=== PATIENT | female | born 1955 | race Caucasian/White ===

== ENCOUNTER 2023-06-21 10:12 | Outpatient (REF) | payer MEDICARE, MEDICAID, SELFPAY ==
[2023-06-21 15:20] LABS: Alanine Aminotransferase 19 U/L (0-31); Albumin Level 3.9 g/dL (3.5-5.0); Alkaline Phosphatase 81 U/L (39-117); Anion Gap 10 (12-20); Aspartate Amino Transferase 24 U/L (5-31); Bilirubin Direct 0.2 mg/dL (0.0-0.5); Bilirubin Total 0.3 mg/dL (0.0-1.0); Blood Urea Nitrogen 7 mg/dL (9-16); Carbon Dioxide 25 mmol/L (22-29); Chloride 107 mmol/L (96-108); Cholesterol 136 mg/dL (<200); Estimated Glomerular Filt Rate > 60; Glucose Random 74 mg/dL (60-115); HDL Cholesterol 58 mg/dL (>40); LDL Cholesterol Calculated 52 mg/dL (<100); Sodium 138 mmol/L (135-145); Total Protein 7.8 g/dL (6.5-8.0); Triglycerides 130 mg/dL (<150)
== END 2023-06-21 10:13 | disposition home or self-care (01) ==
LOC: HO.CHCLDS 10:12
PROVIDERS: Visit Provider Student in an Organized Health Care Education/Training Program
DX: E78.00 Pure hypercholesterolemia, unspecified (principal)
CPT/HCPCS: 36415; 80048; 80061; 80076

== ENCOUNTER 2024-01-28 09:54 | Outpatient (REF) | payer MEDICARE, MEDICAID, SELFPAY ==
[2024-01-28 15:32] LABS: Alanine Aminotransferase 17 U/L (0-31); Albumin Level 3.4 g/dL (3.5-5.0); Alkaline Phosphatase 55 U/L (39-117); Anion Gap 12 (12-20); Aspartate Amino Transferase 24 U/L (5-31); Bilirubin Direct < 0.2 mg/dL (0.0-0.5); Bilirubin Total 0.2 mg/dL (0.0-1.0); Blood Urea Nitrogen 7 mg/dL (9-16); Calcium 8.5 mg/dL (8.4-10.2); Carbon Dioxide 25 mmol/L (22-29); Chloride 108 mmol/L (96-108); Cholesterol 130 mg/dL (<200); Estimated Glomerular Filt Rate > 60; Glucose Random 71 mg/dL (60-115); HDL Cholesterol 52 mg/dL (>40); LDL Cholesterol Calculated 60 mg/dL (<100); Potassium 3.9 mmol/L (3.3-5.1); Sodium 141 mmol/L (135-145); Total Protein 6.5 g/dL (6.5-8.0); Triglycerides 91 mg/dL (<150)
== END 2024-01-28 09:55 | disposition home or self-care (01) ==
LOC: HO.CHCLDS 09:54
PROVIDERS: Visit Provider Student in an Organized Health Care Education/Training Program
DX: E78.00 Pure hypercholesterolemia, unspecified (principal)
CPT/HCPCS: 36415; 80048; 80061; 80076

== ENCOUNTER 2024-07-19 09:40 | Outpatient (REF) | payer MEDICARE, MEDICAID, SELFPAY ==
--- OUTSIDE RECORDS SUMMARY | 2024-07-19 11:01 | XMS_ITS | Encounter Summary ---
Author Organization [employer] Address [address] [place] [address] Care Team Providers Care Metal Roaster Name Role Phone Sierra Leon MD Primary Care Provider [phone] Reason for Visit * Reason Onset Date Comments Lab Orders 07/18/2024 Encounter Details Date Type Department Care Team ([facility] Contact Info) Description 07/18/2024 Telephone [facility]S [address] [place] [address] Sierra Leon MD [address] [place] [address] Lab Orders Social History Tobacco Use Types Packs/Day Years Used Date Smoking Tobacco: Every Day Cigarettes Passive Smoke Exposure: Never Smokeless Tobacco: Never Alcohol Use Standard Drinks/Week Comments Never 0 (1 standard drink = 0.6 oz pur e alcohol) Depression Answer Date Recorded Patient Health Questionnaire-9 Score 8 02/08/2024 Patient Health Questionnaire-9 Score 8 02/08/2024 Last PHQ-9: Questionnaire Data Not on file 0 02/08/2024 Housing Stability Answer Date Recorded What is your housing situation today? I have peyman wyatt 06/25/[address] you li ve. Do you have problems with any of the following? None of the above 06/25/2023 Food Insecurity Answer Date Recorded Within the past 12 months, y ou worried that your food would run out before you got money to buy more: Never True 06/25/2023 Within the past 12 months,th e food you bought just didn't last and you didn't have enough money to get more: Never True 01/2024 Transportation Answer Date Recorded In the past 12 months, has l ack of transportation kept you from medical appts, meetings, work or from getting things needed for daily living? No 06/25/2023 Utilities Answer Date Recorded In the past 12 months, has t he electric, gas, oil or water company threatened to shut off services in your home? No 06/25/2023 Depression Answer Date Recorded Patient Health Questionnaire-2 Score 4 02/08/2024 Internet Access Answer Date Recorded Internet Access Q1 Yes 06/15/2024 Internet Access Q2 Not on file 06/15/2024 Comments No Sex and Gender Information Value Date Recorded Sex Assigned at Female 03/16/2022 10:37 AM EDT Legal Sex Female 10:37 AM EDT Gender Identity Female 03/16/2022 10:37 AM EDT Sexual Orientation Choose not to disclose 2021 10:37 AM EDT documented as of this encounter Miscellaneous Notes * Telephone Encounter - Sierra Leon MD - 07/18/2024 11:13 AM EST ordered * Telephone Encounter - Rachel Bloom - 07/18/2024 9:38 AM EST Tc from pt requesting to get annual labs done before pe appt on 07/26/24. Please call pt to inform if labs will be sent. documented in this encounter Plan of Treatment Upcoming Encounters Date Type Department Care Team ([facility] st Contact Info) Description 07/26/2024 10:15 AM EDT Office Visit [facility] MED & PEDS [address] [place] [address] Sierra Leon MD [address] [place] [address] documented as of this encounter Visit Diagnoses Not on filedocumented in this encounter Additional Health Concerns Assessment Noted Time PHQ-9 Depression Total Score: 8 02/08/20 24 11:48 AM EDT documented as of this encounter Care Teams Metal Roaster Relationship Specialty Start Date End Date Sierra Leon MD [address] [place] [address] PCP - General Family Medicine 10/06/19 documented as of this encounter
--- OUTSIDE RECORDS SUMMARY | 2024-07-19 11:01 | XMS_ITS | Clinical Summary ---
Author Organization [employer] Address [address] [facility] 7t [place] [address] Care Team Providers Care Maintenance Of Way Foreman Name Role Phone Sierra Leon MD Primary Care Provider [phone] Allergies Active Allergy Reactions Criticality Noted Date Comments Antihistamines, Diphenhydramine-Type Anxiety,Dizziness,Palpi tations,Shortness of breath High 06/05/2022 Aspirin Palpitations Low 01/20/2023 Ibuprofen 02/08/2024 Nsaids Hives Low 10/06/2019 Penicillin G Palpitations Low 06/05/2022 Other reaction(s): Aspirin Statins Hives Low 02/26/2021 Medications acetaminophen (Tylenol 8 Hour) 650 MG ER tablet Take 1 tablet by mouth every 8 (eight) hours. 0 Active rosuvastatin (Crestor) 10 MG tabletIndicatio ns:Hypercholest erolemia TAKE ONE TABLET EVERY DAY 90 tablet 3 4 Active venlafaxine (Effexor) 25 MG tablet TAKE ONE TABLET BY MOUTH EVERY DAY WITH FOOD 90 tablet 3 4 Active gabapentin (Neurontin) 400 MG capsuleIndicati ons:Depression, unspecified depression type TAKE ONE CAPSULE FOUR TIMES DAILY 120 capsule 1 5 Active gabapentin (Neurontin) 400 MG capsuleIndicati ons:Depression, unspecified depression type TAKE ONE CAPSULE FOUR TIMES DAILY 120 capsule 1 4 025 Discontinued Active Problems Problem Noted Date Diagnosed Date Cataract of both eyes 07/02/2023 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 Hypercholesterolemia 06/05/2022 Depression 04/17/2022 Encounters Date Type Department Care Team Description 07/18/2024 Orders Only [facility] MED & PEDS [address] [place] [address] Sierra Leon MD Hypercholesterolemia (Primary Dx) 07/18/2024 Telephone [facility] MED & PEDS [address] [place] [address] Sierra Leon MD Lab Orders 07/07/2024 Refill [facility] MED & PEDS [address] [place] [address] Melanie English MD Depression, unspecified depression type 06/15/2024 Patient Outreach [facility] MED & PEDS [address] [place] [address] Sierra Leon MD Pre-visit Planning (SDOH negative, Tobacco screening negative. ) 06/15/2024 Travel 05/12/2024 Telephone [facility] MEDICINE [address] [place] [address] Sierra Leon MD Med Refill 05/12/2024 Refill [facility] MED & PEDS [address] [place] [address] Sierra Leon MD Depression, unspecified depression type 05/08/2024 Telephone [facility] MED & PEDS [address] [place] [address] Sierra Leon MD Med Refill from Last 3 Months Immunizations Name Administration Dates Next Due Influenza High-dose Quadriva lent Preservative Free 03/30/2023,03/27/2022,02/07/2020 Influenza injectable quadriv alent preservative free 04/03/2021 Influenza, High Dose Seasona l, Preservative Free 02/08/2024 Pfizer Covid-19 Vaccine 12+ 08/23/2020, Pneumococcal Conjugate PCV 20 07/02/2023 Tdap 02/07/2020 Social History Tobacco Use Types Packs/Day Years Used Date Smoking Tobacco: Every Day Cigarettes Passive Smoke Exposure: Never Smokeless Tobacco: Never Tobacco Cessation:Ready to Q uit: Not Asked; Counseling Given: Not Answered Alcohol Use Standard Drinks/Week Comments Never 0 [...] not to disclose 2021 10:37 AM EDT Last Filed Vital Signs Vital Sign Reading Time Taken Comments Blood Pressure 118/73 02/08/2024 11:47 AM EDT Pulse 66 02/08/2024 11:47 AM EDT Temperature 36.6 ??C (97.8 ??F) 02/08/2024 11:47 AM E DT Respiratory Rate 18 02/08/2024 11:47 AM EDT Oxygen Saturation 98% 09/14/2023 10:17 AM EDT Inhaled Oxygen Concentration - - Weight 55.3 kg (122 lb) 02/08/2024 11:47 AM EDT Height 160.7 cm (5' 3.25 ) 02/08/2024 11:47 AM E DT Body Mass Index 21.44 02/08/2024 11:47 AM EDT Plan of Treatment Upcoming Encounters Date Type Department Care Team (Late st Contact Info) Description 07/26/2024 10:15 AM EDT Office Visit [facility] MED & PEDS [address] [place] [address] Sierra Leon MD [address] [place] [address] Health Maintenance Due Date Last Done Comments CT Colonography 1954 Colonoscopy 1954 Colorectal Cancer Screening 1954 Dental Prophylaxis 1954 Dental X-Ray: Bitewings 1954 Dental X-Ray: Full Mouth 1954 FIT DNA/Cologuard 1954 FIT 1954 FOBT 1954 Sigmoidoscopy 1954 Alcohol/Substance Use Screening 1966 Hepatitis C Screening 1972 Mammogram 1994 Zoster Vaccines (1 of 2) 2004 Dental Oral Exam 02/12/2023 08/11/2022 COVID-19 Vaccine ( season) 2024 08/23/2020, 08/02/2020 Depression Screening 02/07/2025 02/08/2024, 02/08/20 24 Tobacco Screening 02/07/2025 02/08/2024 SDOH Screening 06/15/2025 06/15/2024 Lipid Panel 01/27/2029 01/28/2024, 0209/2023, 09/24/2022, Additional history exists RSV Patients and Patients Aged 60 years or older (1 - 1-dose 75+ series) 2029 DTaP/Tdap/Td Vaccines (2 - Td or Tdap) 02/06/2030 02/07/2020 Pneumococcal Vaccine: 50+ Years Completed 07/02/2023 Influenza Vaccine Completed 02/08/2024, , 03/27/2022, Additional history exists HIB Vaccines Aged Out No longer eligi ble based on patient's age to complete this topic HPV Vaccines Aged Out No longer eligi ble based on patient's age to complete this topic Hepatitis A Vaccines Aged Out No long er eligible based on patient's age to complete this topic Hepatitis B Vaccines Aged Out No long er eligible based on patient's age to complete this topic IPV Vaccines Aged Out No longer eligi ble based on patient's age to complete this topic Meningococcal Vaccine Aged Out No godfrey felisa eligible based on patient's age to complete this topic RSV under 20 months Aged Out No longe r eligible based on patient's age to complete this topic Rotavirus Vaccines Aged Out No longer eligible based on patient's age to complete this topic Procedures Procedure Name Priority Date/Time Associated Diagnosis Comments LIPID PANEL, STANDARD Routine 01/28/2024 9:56 AM EDT Hypercholesterolem ia COMPREHENSIVE ORAL EVALUATION - NEW OR ESTABLISHED PATIENT Routine 08/11/2022 10:15 AM EDT from Last 3 Months or Most Recently Relevant to Health Maintenance Results * Lipid Panel, Standard (01/28/2024 9:56 AM EDT) Triglycerides 91 <150 mg/dL [facility] Comment:Desirable Triglyceri de: less than 150 mg/dLBorderline High Triglyceride 150-199 mg/dLHigh Triglyceride: 200-499 mg/dLVery High Triglyceride: greater than or equal to 5OO mg/dL Cholesterol 130 <200 mg/dL [facility] Comment:Desirable Cholestero l: less than 200 mg/dLBorderline High Cholesterol: 200-239 mg/dLHigh Cholesterol: greater than 239 mg/dL LDL Cholesterol Calculated 60 <100 mg/dL [facility] Comment:Desirable LDL: less than 100 mg/dLNear Optimal/Above Optimal LDL: 110- 129 mg/dLBorderline High LDL: 130-159 mg/dLHigh LDL: 160-189 mg/dLVery High LDL: greater than or equal to 190 mg/dL HDL Cholesterol 52 >40 mg/dL [facility] Comment:Desirable HDL: great er than 40 mg/dL Note: This HDL assay may give artificially low results in patients with liver disease. Blood Venous blood specimen / Unknown 01/28/2024 9:56 AM EDT 01/28/2024 2:52 PM EDT us Sierra Leon MD LAB BLOOD ORDERABLES Final Resul t [facility] [address] [place] [address] [phone] from Last 3 Months or Most Recently Relevant to Health Maintenance Insurance [facility] STANDARD MEDICARE DENTAL-[facility] MEDICAID STAND ADULT Care Teams Maintenance Of Way Foreman Relationship Specialty Start Date End Date Sierra Leon MD [address] [place] [id number] PCP - General Family Medicine 10/06/19
--- OUTSIDE RECORDS SUMMARY | 2024-07-19 11:01 | XMS_ITS | Encounter Summary ---
Author Organization [employer] Address [address] [place] [address] Care Team Providers Care Program Director Scouting Name Role Phone Sierra Leon MD Primary Care Provider [phone] Reason for Visit * Reason Onset Date Comments Med Refill 05/12/2024 Encounter Details Date Type Department Care Team ([facility] st Contact Info) Description 05/12/2024 Telephone [facility] MEDICINE [address] [place] [address] Sierra Leon MD [address] [place] [address] Med Refill Social History Tobacco Use Types Packs/Day Years [...] Recorded Patient Health Questionnaire-2 Score 4 02/08/2024 Comments No Sex and Gender Information Value Date Recorded Sex Assigned at Female 03/16/2022 10:37 AM EDT Legal Sex Female 10:37 AM EDT Gender Identity Female 03/16/2022 10:37 AM EDT Sexual Orientation Choose not to disclose 2021 10:37 AM EDT documented as of this encounter Miscellaneous Notes * Telephone Encounter - Joyce Burdick LPN - 05/12/2024 11:17 AM EST Medication pended to provider. * Telephone Encounter - Agustin Cagle - 05/12/2024 9:28 AM EST TC from pt requesting medication refill. Medications needing refill : gabapentin (Neurontin) 400 MG capsule To be sent to: [facility] documented in this encounter Plan of Treatment Upcoming Encounters Date Type Department Care Team (Late st Contact Info) Description 07/26/2024 10:15 AM EDT Office Visit [facility] MED & PEDS [address] [place] [address] Sierra Leon MD [address] [place] [address] documented as of this encounter Visit Diagnoses Not on filedocumented in this encounter Additional Health Concerns Assessment Noted Time PHQ-9 Depression Total Score: 8 02/08/20 24 11:48 AM EDT documented as of this encounter Care Teams Program Director Scouting Relationship Specialty Start Date End Date Sierra Leon MD [address] [place] [id number] PCP - General Family Medicine 10/06/19 documented as of this encounter
--- OUTSIDE RECORDS SUMMARY | 2024-07-19 11:01 | XMS_ITS | Encounter Summary ---
Author Organization [employer] Address [address] [place] [address] Care Team Providers Care Instrumentation Technician Name Role Phone Sierra Leon MD Primary Care Provider [phone] Reason for Visit * Reason Onset Date Comments case back from lab 11/05/2022 Encounter Details Date Type Department Care Team ([facility] st Contact Info) Description 11/05/2022 Telephone [facility] [address] [place] [address] Rashid Hart DDS [address] [place] [address] case back from lab Social History Tobacco Use Types Packs/Day Years Used Date Smoking Tobacco: Every Day Cigarettes Passive Smoke Exposure: Never Smokeless Tobacco: Never Alcohol Use Standard Drinks/Week Comments Never 0 (1 standard drink = 0.6 oz pur e alcohol) Depression Answer Date Recorded Patient Health Questionnaire-9 Score 2 06/05/2022 Depression Answer Date Recorded Patient Health Questionnaire-2 Score 2 06/05/2022 Comments No Sex and Gender Information Value Date Recorded Sex Assigned at Female 03/16/2022 10:37 AM EDT Legal Sex Female 10:37 AM EDT Gender Identity Female 03/16/2022 10:37 AM EDT Sexual Orientation Choose not to disclose 2021 10:37 AM EDT COVID-19 Exposure Response Date Recorded In the last 10 days, have yo u been in contact with someone who was confirmed or suspected to have Coronavirus/COVID-19? No / Unsure 10/19/2022 3:21 PM EDT documented as of this encounter Miscellaneous Notes * Telephone Encounter - Viktoriya Fam - 11/05/2022 2:25 PM EDT Patient called in to confirm if case is back from lab. Would like to be scheduled DR documented in this encounter Plan of Treatment Upcoming Encounters Date Type Department Care Team (Late st Contact Info) Description 07/26/2024 10:15 AM EDT Office Visit [facility] MED & PEDS [address] [place] [address] Sierra Leon MD [address] [place] [address] documented as of this encounter Visit Diagnoses Not on filedocumented in this encounter Additional Health Concerns Assessment Noted Time PHQ-9 Depression Total Score: 2 06/05/19 23 11:20 AM EST documented as of this encounter Care Teams Instrumentation Technician Relationship Specialty Start Date End Date Sierra Leon MD [address] [place] [phone] PCP - General Family Medicine 10/06/19 documented as of this encounter
--- OUTSIDE RECORDS SUMMARY | 2024-07-19 11:01 | XMS_ITS | Encounter Summary ---
Author Organization [employer] Address [address] [place] [address] Care Team Providers Care Retirement Plan Counselor Name Role Phone Sierra Leon MD Primary Care Provider [phone] Reason for Visit * Reason Onset Date Comments Med Refill 09/08/2022 Encounter Details Date Type Department Care Team ([facility] st Contact Info) Description 09/08/2022 Refill [facility] MEDICINE [address] [place] [address] Sierra Leon MD [address] [place] [address] Depression, unspecified depression type Social History Tobacco Use Types Packs/Day Years [...] suspected to have Coronavirus/COVID-19? No / Unsure 08/27/2022 1:29 PM EDT documented as of this encounter Miscellaneous Notes * Telephone Encounter - Roger Carvalho - 09/08/2022 10:32 AM EDT Tc from pt requesting med refill Gabapentin 400 mg documented in this encounter Plan of Treatment Upcoming Encounters Date Type Department Care Team (Late st Contact Info) Description 07/26/2024 10:15 AM EDT Office Visit [facility] MED & PEDS [address] [place] [address] Sierra Leon MD [address] [place] [address] documented as of this encounter Visit Diagnoses Diagnosis Depression, unspecified depression type documented in this encounter Additional Health Concerns Assessment Noted Time PHQ-9 Depression Total Score: 2 06/05/19 23 11:20 AM EST documented as of this encounter Care Teams Retirement Plan Counselor Relationship Specialty Start Date End Date Sierra Leon MD [address] [place] [address] PCP - General Family Medicine 10/06/19 documented as of this encounter
--- OUTSIDE RECORDS SUMMARY | 2024-07-19 11:01 | XMS_ITS | Encounter Summary ---
Author Organization [employer] Address [address] [place] [address] Care Team Providers Care Irrigation Service Technician Name Role Phone Sierra Leon MD Primary Care Provider [phone] Reason for Visit * Reason Onset Date Comments Pre Op 08/31/2023 Encounter Details Date Type Department Care Team ([facility] Contact Info) Description 08/31/2023 Telephone [facility]S [address] [place] [address] Sierra Leon MD [address] [place] [address] Pre Op Social History Tobacco Use Types Packs/Day Years Used Date Smoking Tobacco: Every Day Cigarettes Passive Smoke Exposure: Never Smokeless Tobacco: Never Alcohol Use Standard Drinks/Week Comments Never 0 (1 standard drink = 0.6 oz pur e alcohol) Depression Answer Date Recorded Patient Health Questionnaire-9 Score 1 07/02/2023 Patient Health Questionnaire-9 Score 1 07/02/2023 Last PHQ-9: Questionnaire Data Not on file 0 07/02/2023 Housing Stability Answer Date Recorded What is [...] Answer Date Recorded Patient Health Questionnaire-2 Score 0 07/02/2023 Comments No Sex and Gender Information Value Date Recorded Sex Assigned at Female 03/16/2022 10:37 AM EDT Legal Sex Female 10:37 AM EDT Gender Identity Female 03/16/2022 10:37 AM EDT Sexual Orientation Choose not to disclose 2021 10:37 AM EDT documented as of this encounter Miscellaneous Notes * Telephone Encounter - Wing Brooke RN - 08/31/2023 12:13 PM EDT Tc to Livia in regard to pre-op. Confirmed information for surgery and schedueld pt with Dr. Farrell for 09/13 at 10:15 am. Livia verbalized understanding and agreement with plan and would call pt about said appt. * Telephone Encounter - Rachel Bloom - 08/31/2023 9:09 AM EDT Date of Surgery: 10/07/23 Surgical procedure being done: cataract surgery right eye Type of anesthesia: max Lab needed: no EKG: no Surgeon's name: Henry pierre Facility name[facility] Surgeon's office number: [phone] Surgeon's office fax number: [phone] Contact name (person you spoke with): yennifer Last office note from surgeon requested: yes documented in this encounter Plan of Treatment Upcoming Encounters Date Type Department Care Team ([facility] st Contact Info) Description 07/26/2024 10:15 AM EDT Office Visit [facility] MED & PEDS [address] [place], [place] [id number] Sierra Leon MD [address] [place] [address] documented as of this encounter Visit Diagnoses Not on filedocumented in this encounter Additional Health Concerns Assessment Noted Time PHQ-9 Depression Total Score: 1 07/02/19 24 10:05 AM EST documented as of this encounter Care Teams Irrigation Service Technician Relationship Specialty Start Date End Date Sierra Leon MD [address] [place] [id number] PCP - General Family Medicine 10/06/19 documented as of this encounter
--- OUTSIDE RECORDS SUMMARY | 2024-07-19 11:01 | XMS_ITS | Encounter Summary ---
Author Organization [employer] Address [address] [facility] [address]t [place] [address] Care Team Providers Care Fabrication Department Supervisor Name Role Phone Sierra Leon MD Primary Care Provider [phone] Reason for Visit * Reason Comments Med Refill Encounter Details Date Type Department Care Team ([facility] st Contact Info) Description 07/07/2024 Refill [facility] MED & PEDS [address] [place] [address] Melanie English MD [address] [place] [address] Depression, unspecified depression type Social History Tobacco [...] AM EDT documented as of this encounter Plan of Treatment Upcoming Encounters Date Type Department Care Team ([facility] st Contact Info) Description 07/26/2024 10:15 AM EDT Office Visit [facility] MED & PEDS [address] [place] [address] Sierra Leon MD [address] [place] [address] documented as of this encounter Visit Diagnoses Diagnosis Depression, unspecified depression type documented in this encounter Additional Health Concerns Assessment Noted Time PHQ-9 Depression Total Score: 8 02/08/20 24 11:48 AM EDT documented as of this encounter Care Teams Fabrication Department Supervisor Relationship Specialty Start Date End Date Sierra Leon MD [address] [place] [id number] PCP - General Family Medicine 10/06/19 documented as of this encounter
--- OUTSIDE RECORDS SUMMARY | 2024-07-19 11:01 | XMS_ITS | Encounter Summary ---
Author Organization [employer] Address [address] [facility] [address] 7t [place] [address] Care Team Providers Care Solar Sales Representative Name Role Phone Sierra Leon MD Primary Care Provider [phone] Reason for Visit * Reason Onset Date Comments Appointment Request 05/24/2023 Encounter Details Date Type Department Care Team ([facility] Contact Info) Description 05/24/2023 Telephone [facility] [address] [place] [address] Sierra Leon MD 505 [place] [address] Appointment Request Social History Tobacco Use Types Packs/Day Years Used Date Smoking Tobacco: Every Day Cigarettes Passive Smoke Exposure: Never Smokeless Tobacco: Never Alcohol Use Standard Drinks/Week Comments Never 0 (1 standard drink = 0.6 oz pur e alcohol) Depression Answer Date Recorded Patient Health Questionnaire-9 Score 2 06/05/2022 Housing Stability Answer Date Recorded What is your housing situation today? I have peyman wyatt 03/27/[address] you li ve. Do you have problems with any of the following? None of the above 03/27/2023 Food Insecurity Answer Date Recorded Within the past 12 months, y ou worried that your food would run out before you got money to buy more: Never True 03/27/2023 Within the past 12 months,th e food you bought just didn't last and you didn't have enough money to get more: Never True 03/2023 Transportation Answer Date Recorded In the past 12 months, has l ack of transportation kept you from medical appts, meetings, work or from getting things needed for daily living? No 03/27/2023 Utilities Answer Date Recorded In the past 12 months, has t he electric, gas, oil or water company threatened to shut off services in your home? No 03/27/2023 Depression Answer Date Recorded Patient Health Questionnaire-2 Score 2 06/05/2022 Comments No Sex and Gender Information Value Date Recorded Sex Assigned at Female 03/16/2022 10:37 AM EDT Legal Sex Female 10:37 AM EDT Gender Identity Female 03/16/2022 10:37 AM EDT Sexual Orientation Choose not to disclose 2021 10:37 AM EDT documented as of this encounter Miscellaneous Notes * Telephone Encounter - Yaneli Greenwood - 05/25/2023 10:00 AM EST Tc from pt calling in regards to message above. Please contact pt at [phone] * Telephone Encounter - Jaswinder Loya - 05/24/2023 11:48 AM EST Tc from pt wanting to schedule an appt with pcp regarding mamogram and a ct scan regarding her arthritis. Pt is also requesting labs. Pt denied any concerns, please contact pt at [phone]. documented in this encounter Plan of Treatment Upcoming Encounters Date Type Department Care Team (Late st Contact Info) Description 07/26/2024 10:15 AM EDT Office Visit [facility] [address] [place] [address] Sierra Leon MD 505 [place] [address] documented as of this encounter Visit Diagnoses Not on filedocumented in this encounter Additional Health Concerns Assessment Noted Time PHQ-9 Depression Total Score: 2 06/05/19 23 11:20 AM EST documented as of this encounter Care Teams Solar Sales Representative Relationship Specialty Start Date End Date Sierra Leon MD [address] [place] [address] PCP - General Family Medicine 10/06/19 documented as of this encounter
--- OUTSIDE RECORDS SUMMARY | 2024-07-19 11:01 | XMS_ITS | Encounter Summary ---
Author Organization [employer] Address [address] [facility] [address] 7[address] [place] [address] Care Team Providers Care Front Line Supervisor Name Role Phone Sierra Leon MD Primary Care Provider [phone] Encounter Details Date Type Department Care Team (Latest Contact Info) Description 07/18/2024 Orders Only [facility] MED & PEDS 505 [place] [address] Sierra Leon MD 505 [place] [address] Hypercholesterolemia (Primary Dx) Social History Tobacco Use Types Packs/Day Years [...] Description 07/26/2024 10:15 AM EDT Office Visit [facility]S [address] [place] [address] Sierra Leon MD 505 [place] [address] Scheduled Orders Name Type Priority Associated Diagnoses Orde r Schedule Basic Metabolic Panel Lab Routine Hypercholesterolemia Expected: 07/18/2024 (Approximate), Expires: 07/18/2025 Lipid Panel, Standard Lab Routine Hypercholesterolemia Expected: 07/18/2024 (Approximate), Expires: 07/18/2025 Hepatic Function Panel Lab Routine Hypercholesterolemia Expected: 07/18/2024 (Approximate), Expires: 07/18/2025 documented as of this encounter Visit Diagnoses Diagnosis Hypercholesterolemia- Primary Pure hypercholesterolemia documented in this encounter Additional Health Concerns Assessment Noted Time PHQ-9 Depression Total Score: 8 02/08/20 24 11:48 AM EDT documented as of this encounter Care Teams Front Line Supervisor Relationship Specialty Start Date End Date Sierra Leon MD [address] [place] [address] PCP - General Family Medicine 10/06/19 documented as of this encounter
--- OUTSIDE RECORDS SUMMARY | 2024-07-19 11:01 | XMS_ITS | Encounter Summary ---
Author Organization [employer] Address [address] [facility] [address] [address] 7t [place] [address] Care Team Providers Care Safety Belt Installer Name Role Phone Sierra Leon MD Primary Care Provider [phone] Reason for Visit * Reason Onset Date Comments Lab Orders 05/28/2023 Encounter Details Date Type Department Care Team ([facility] Contact Info) Description 05/28/2023 Telephone [facility] MEDICINE [address] [place] [address] Sierra Leon MD [address] [place], [place] [id number] Lab Orders Social History Tobacco Use Types [...] encounter Miscellaneous Notes * Telephone Encounter - Maryanne Moreno RN - 06/01/2023 11:51 AM EST Noted. Pt informed of lab orders placed. * Telephone Encounter - Sierra Leon MD - 06/01/2023 11:30 AM EST Sent * Telephone Encounter - Maryanne Moreno RN - 05/28/2023 10:38 AM EST Please review message below and advise if you would like to order labs for pt prior to appt. * Telephone Encounter - Aroldo Velázquez - 05/28/2023 9:14 AM EST Tc from patient calling to request lab works prior to upcoming appt on 07/02 @ 10:15 documented in this encounter Plan of Treatment Upcoming Encounters Date Type Department Care Team (Late st Contact Info) Description 07/26/2024 10:15 AM EDT Office Visit [facility] MED & PEDS 505 [place] [address] Sierra Leon MD 505 [place] [address] documented as of this encounter Visit Diagnoses Not on filedocumented in this encounter Additional Health Concerns Assessment Noted Time PHQ-9 Depression Total Score: 2 06/05/19 23 11:20 AM EST documented as of this encounter Care Teams Safety Belt Installer Relationship Specialty Start Date End Date Sierra Leon MD [address] [place] [address] PCP - General Family Medicine 10/06/19 documented as of this encounter
[2024-07-19 14:43] LABS: Alanine Aminotransferase 20 U/L (0-31); Albumin Level 3.8 g/dL (3.5-5.0); Alkaline Phosphatase 70 U/L (39-117); Anion Gap 10 (12-20); Aspartate Amino Transferase 33 U/L (5-31); Bilirubin Direct < 0.2 mg/dL (0.0-0.5); Bilirubin Total 0.2 mg/dL (0.0-1.0); Blood Urea Nitrogen 7 mg/dL (9-16); Calcium 9.1 mg/dL (8.4-10.2); Carbon Dioxide 28 mmol/L (22-29); Chloride 105 mmol/L (96-108); Cholesterol 149 mg/dL (<200); Estimated Glomerular Filt Rate > 60; Glucose Random 85 mg/dL (60-115); HDL Cholesterol 61 mg/dL (>40); LDL Cholesterol Calculated 71 mg/dL (<100); Potassium 3.7 mmol/L (3.3-5.1); Sodium 139 mmol/L (135-145); Total Protein 7.7 g/dL (6.5-8.0); Triglycerides 87 mg/dL (<150)
== END 2024-07-19 09:41 | disposition home or self-care (01) ==
LOC: HO.CHCLDS 09:40
PROVIDERS: Visit Provider Student in an Organized Health Care Education/Training Program
DX: E78.00 Pure hypercholesterolemia, unspecified (principal)
CPT/HCPCS: 36415; 80048; 80061; 80076

== ENCOUNTER 2025-01-01 09:03 | Outpatient (REF) | payer MEDICARE, MEDICAID, SELFPAY ==
--- OUTSIDE RECORDS SUMMARY | 2025-01-01 09:35 | XMS_ITS | Clinical Summary ---
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) from Last 3 Months Social History Tobacco Use Types Packs/Day Years Used Date Smoking Tobacco: Never Assessed Comments Unknown Sex and Gender Information Value Date Recorded Sex Assigned at Not on file Legal Sex Female 11:10 AM EDT Gender Identity Not on file Sexual Orientation Not on file Plan of Treatment Upcoming Encounters Date Type Department Care Team (Late st Contact Info) Description 01/22/2025 12:40 PM EDT Office Visit [facility] [address] [place] [address] Glen Parker NP [address] [place] [address] Dr Zaragoza [address] [place] [address] 01/31/2025 1:00 PM EDT Ancillary Procedure [facility] [address] [address] [place] [address] Health Maintenance Due Date Last Done Comments Breast Cancer Screening 1954 DTaP,Tdap,and Td Vaccines (1 - Tdap) 1973 Pneumococcal Vaccine: 50+ Ye ars (1 of 1 - PCV) 2004 Zoster Vaccines (1 of 2) 2004 COVID-19 Vaccine ( - 2023-2 5 season) 2024 Depression Screening 05/17/2024 Colorectal Cancer Screening: Colonoscopy 11/17/2024 Falls Risk Assessment 11/17/2024 Hepatitis C Screening 11/17/2024 Medicare Annual Wellness Visit 11/17/2024 Osteoporosis Screening (Bone Density Screening) 11/17/2024 Social Influencers of Health Screening 11/17/2024 Influenza Vaccine (#1) 2025 RSV Immunization Adult Patie nts (1 - 1-dose 75+ series) 2029 HIB Vaccines Aged Out No longer eligi [...] on patient's age to complete this topic MMR Vaccines Aged Out No longer eligi ble based on patient's age to complete this topic Meningococcal ACWY Vaccine Aged Out N o longer eligible based on patient's age to complete this topic Meningococcal B Vaccine Aged Out No l onger eligible based on patient's age to complete this topic RSV Immunization Patients Un radha 20 months Aged Out No longer eligible b ased on patient's age to complete this topic Varicella Vaccines Aged Out No longer eligible based on patient's age to complete this topic Insurance MEDICARE MEDICAID - [place] Care Teams Cushion Filler Relationship Specialty Start Date End Date Sierra Leon MD [address] [place] [address] PCP - General Family Medicine 11/21/24
--- OUTSIDE RECORDS SUMMARY | 2025-01-01 09:35 | XMS_ITS | Encounter Summary ---
Author Organization [employer] Address [address] [facility] [address] 7t [place] [address] Care Team Providers Care Virtualization Consultant Name Role Phone Sierra Leon MD Primary Care Provider [phone] Reason for Visit * Reason Onset Date Comments Lab Orders 07/18/2024 Encounter Details Date Type Department Care Team ([facility] Contact Info) Description 07/18/2024 Telephone [facility] MED & PEDS [address] [place], [place] [phone] Sierra Leon MD 505 [place] [address] Lab Orders Social History Tobacco Use Types [...] Care Team (Late st Contact Info) Description 01/09/2025 9:15 AM EDT Office Visit [facility] MED & PEDS 505 [place] [address] Sierra Leon MD 505 [facility] [place] [address] documented as of this encounter Visit Diagnoses Not on filedocumented in this encounter Additional Health Concerns Assessment Noted Time PHQ-9 Depression Total Score: 8 02/08/20 24 11:48 AM EDT documented as of this encounter Care Teams Virtualization Consultant Relationship Specialty Start Date End Date Sierra Leon MD [address] [place] [address] PCP - General Family Medicine 10/06/19 documented as of this encounter
[2025-01-01 14:15] LABS: Hematocrit 34.6 % (37.0-47.0); Hemoglobin 11.2 g/dl (12.0-16.0); Imm Gran Abs Auto 0.03 X10*3/uL (0.00-0.03); Imm Gran Pct Auto 0.3 % (0.0-0.4); Lymphocytes Absolute Auto 2.1 X10*3/uL (1.2-4.9); Mean Corpuscular HGB Conc 32.4 g/dl (31.0-35.0); Mean Corpuscular Hemoglobin 33.0 pg (27.0-33.0); Mean Corpuscular Volume 102.1 fL (80.0-98.0); NRBC Abs Auto 0.020 X10*3/uL (0.0-0.012); NRBC Pct Auto 0.2 /100WBC (0.0-0.2); Platelet Count 282 X10*3/uL (160-400); Red Blood Count 3.39 X10*6/uL (4.20-5.50); White Blood Count 8.6 X10*3/uL (4.8-10.8)
[2025-01-01 14:19] LABS: INTERNATIONAL NORM RATIO 0.9 (0.9-1.1); Prothrombin Time 10.0 SEC (10.9-12.4)
[2025-01-01 14:27] LABS: Anion Gap 10 (12-20); Blood Urea Nitrogen 8 mg/dL (9-16); Calcium 8.4 mg/dL (8.4-10.2); Carbon Dioxide 27 mmol/L (22-29); Chloride 109 mmol/L (96-108); Estimated Glomerular Filt Rate > 60; Potassium 4.2 mmol/L (3.3-5.1); Sodium 142 mmol/L (135-145)
== END 2025-01-01 09:04 | disposition home or self-care (01) ==
LOC: HO.CHCLDS 09:03
PROVIDERS: Referring Provider Student in an Organized Health Care Education/Training Program; Visit Provider Internal Medicine Clinical Cardiac Electrophysiology
DX: R00.1 Bradycardia, unspecified (principal); R42 Dizziness and giddiness
CPT/HCPCS: 36415; 80048; 85025; 85610

== ENCOUNTER 2025-04-19 10:40 | Outpatient (REF) | payer MEDICARE, MEDICAID, SELFPAY ==
--- OUTSIDE RECORDS SUMMARY | 2025-04-19 13:18 | XMS_ITS | Encounter Summary ---
Author Organization [employer] Address [address] [facility] 7t [place] [address] Care Team Providers Care Last Marker Name Role Phone Sarah Beth Bonilla CNP Primary Care Provider [phone] Reason for Visit * Reason Onset Date Comments Med Refill 04/16/2025 Encounter Details Date Type Department Care Team ([facility] st Contact Info) Description 04/16/2025 Refill [facility] MEDICINE [address] [place] [address] Sarah Beth Bonilla CNP [address] [place] [address] Depression, unspecified depression type Social History Tobacco Use Types Packs/Day Years Used Date Smoking Tobacco: Every Day Cigarettes Passive Smoke Exposure: Never Smokeless Tobacco: Never Alcohol Use Standard Drinks/Week Comments Never 0 (1 standard drink = 0.6 oz pur e alcohol) Depression Answer Date Recorded Patient Health Questionnaire-9 Score 3 03/27/2025 Patient Health Questionnaire-9 Score 3 03/27/2025 Last PHQ-9: Questionnaire Data Not on file 1 05/27/2024 Housing Stability Answer Date Recorded What is [...] Date Recorded Patient Health Questionnaire-2 Score 0 03/27/2025 Internet Access Answer Date Recorded Internet Access [...] encounter Miscellaneous Notes * Telephone Encounter - Dalila Hernandez LPN - 04/16/2025 9:04 AM EST Hog Dropper checked on 04.16.25 and last seen 03.27.25 * Telephone Encounter - Carla Watson - 04/16/2025 8:58 AM EST Tc from pt reqUesting med refill: gabapentin (Neurontin) 400 MG capsule and cyanocobalamin (Vitamin B-12) 1000 MCG tablet PCP Octavio Bonilla documented in this encounter Plan of Treatment Not on file documented as of this encounter Visit Diagnoses Diagnosis Depression, unspecified depression type documented in this encounter Additional Health Concerns Assessment Noted Time PHQ-9 Depression Total Score: 3 03/27/20 2:01 PM EST documented as of this encounter Care Teams Last Marker Relationship Specialty Start Date End Date Sarah Beth Bonilla CNP 505 [place] [address] PCP - General Family Medicine 03/19/25 documented as of this encounter
--- OUTSIDE RECORDS SUMMARY | 2025-04-19 13:18 | XMS_ITS | Encounter Summary ---
Author Organization [employer] Address [address] [facility] [address] 7t [place] [address] Care Team Providers Care Cabinet Professional Name Role Phone Sierra Leon MD Primary Care Provider [phone] Sarah Beth Bonilla CNP Primary Care Provider [phone] Reason for Visit * Reason Onset Date Comments Lab Orders 07/18/2024 Encounter Details Date Type Department Care Team ([facility] Contact Info) Description 07/18/2024 Telephone [facility] MED & PEDS [address] [place], [place] [phone] Sierra Leon MD 505 [place] [address] Lab Orders Social History Tobacco Use Types [...] documented as of this encounter Care Teams Cabinet Professional Relationship Specialty Start Date End Date Sierra Leon MD [address] [place] [address] PCP - General Family Medicine 10/06/19 03/18/25 Sarah Beth Bonilla CNP [address] [place] [address] PCP - General Family Medicine 03/19/25 documented as of this encounter
--- OUTSIDE RECORDS SUMMARY | 2025-04-19 13:18 | XMS_ITS | Encounter Summary ---
Author Organization [employer] Address [address] [facility] [address] 7[address] [place] [address] Care Team Providers Care Wool Hat Sanding Machine Operator Name Role Phone Sierra Leon MD Primary Care Provider [phone] Sarah Beth Bonilla CNP Primary Care Provider [phone] Reason for Visit * Reason Onset Date Comments Med Refill 02/22/2025 Encounter Details Date Type Department Care Team ([facility] Contact Info) Description 02/22/2025 Telephone [facility] MED & PEDS 505 [place] [address] Sierra Leon MD 505 [place] [address] Med Refill Social History Tobacco Use Types [...] encounter Miscellaneous Notes * Telephone Encounter - Jr Webb - 02/22/2025 1:50 PM EDT TC from pt requesting medication refill. Medications needing refill : cyanocobalamin (Vitamin B-12) 1000 MCG tablet To be sent to: [facility] [place] - [address] [place] [address] documented in this encounter Plan of Treatment Not on file documented as of this encounter Visit Diagnoses Not on filedocumented in this encounter Additional Health Concerns Assessment Noted Time PHQ-9 Depression Total Score: 8 02/08/20 24 11:48 AM EDT documented as of this encounter Care Teams Wool Hat Sanding Machine Operator Relationship Specialty Start Date End Date Sierra Leon MD [address] [place] [address] PCP - General Family Medicine 10/06/19 03/18/25 Sarah Beth Bonilla CNP 505 [place] [address] PCP - General Family Medicine 03/19/25 documented as of this encounter
--- OUTSIDE RECORDS SUMMARY | 2025-04-19 13:18 | XMS_ITS | Encounter Summary ---
Author Organization [employer] Address [address] [facility] [address] 7[address] [place] [address] Care Team Providers Care Balloon Artist Name Role Phone Sierra Leon MD Primary Care Provider [phone] Sarah Beth Bonilla CNP Primary Care Provider [phone] Reason for Visit * Reason Onset Date Comments Med Refill 09/08/2022 Encounter Details Date Type Department Care Team ([facility] st Contact Info) Description 09/08/2022 Refill [facility] MEDICINE 230 [place] [address] Sierra Leon MD [address] [place], [place] [phone] Depression, unspecified depression type Social History Tobacco [...] documented as of this encounter Care Teams Balloon Artist Relationship Specialty Start Date End Date Sierra Leon MD [address] [place] [address] PCP - General Family Medicine 10/06/19 03/18/25 Sarah Beth Bonilla CNP [address] [place] [address] PCP - General Family Medicine 03/19/25 documented as of this encounter
--- OUTSIDE RECORDS SUMMARY | 2025-04-19 13:18 | XMS_ITS | Encounter Summary ---
Author Organization [employer] Address [address] [facility] [address] 7t [place] [address] Care Team Providers Care Commodity Broker Name Role Phone Sierra Leon MD Primary Care Provider [phone] Sarah Beth Bonilla CNP Primary Care Provider [phone] Reason for Visit * Reason Onset Date Comments Call Back Request 11/07/2024 Encounter Details Date Type Department Care Team ([facility] Contact Info) Description 11/07/[address] [facility] MEDICINE 230 [place] [address] Sierra Leon MD 505 [place], [place] [phone] Call Back Request Social History Tobacco Use Types Packs/Day [...] encounter Miscellaneous Notes * Telephone Encounter - Agustin Cagle - 11/07/2024 11:18 AM EDT Telephone call received from patient requesting to speak with a nurse. Patient reports she was previously speaking with her PCP regarding having a pet which choose a cat for anxiety and depression she spoke to housing management as they're requesting confirmation that this is acceptable and states she needs documentation, as she would like to provide complete information to the nurse. Callback number: [phone]. documented in this encounter Plan of Treatment Not on file documented as of this encounter Visit Diagnoses Not on filedocumented in this encounter Additional Health Concerns Assessment Noted Time PHQ-9 Depression Total Score: 8 02/08/20 24 11:48 AM EDT documented as of this encounter Care Teams Commodity Broker Relationship Specialty Start Date End Date Sierra Leon MD [address] [place] [phone] PCP - General Family Medicine 10/06/19 03/18/25 Sarah Beth Bonilla CNP [address] [place] [phone] PCP - General Family Medicine 03/19/25 documented as of this encounter
--- OUTSIDE RECORDS SUMMARY | 2025-04-19 13:18 | XMS_ITS | Encounter Summary ---
Author Organization [employer] Address [address] [facility] [address] [place] [address] Care Team Providers Care Data Coder Operator Name Role Phone Chad Vicentefrederickjordyn NIMO Primary Care Provider [phone] Reason for Visit * Reason Comments Med Refill Encounter Details Date Type Department Care Team ([facility] Contact Info) Description 04/14/2025 Refill [facility] MED & PEDS 505 [place], [place] [phone] Sierra Loen MD 505 [place] [address] Depression, unspecified depression type Social History Tobacco [...] as of this encounter Plan of Treatment Not on file documented as of this encounter Visit Diagnoses Diagnosis Depression, unspecified depression type documented in this encounter Additional Health Concerns Assessment Noted Time PHQ-9 Depression Total Score: 3 03/27/20 2:01 PM EST documented as of this encounter Care Teams Data Coder Operator Relationship Specialty Start Date End Date Sarah Beth Bonilla CNP [address] [place] [address] PCP - General Family Medicine 03/19/25 documented as of this encounter
--- OUTSIDE RECORDS SUMMARY | 2025-04-19 13:18 | XMS_ITS | Encounter Summary ---
Author Organization [employer] Address [address] [facility] [address] [place] [address] Care Team Providers Care Cryptographic Clerk Name Role Phone Sierra Leon MD Primary Care Provider [phone] Sarah Beth Bonilla CNP Primary Care Provider [phone] Reason for Visit * Reason Onset Date Comments case back from lab 11/05/2022 Encounter Details Date Type Department Care Team ([facility] st Contact Info) Description 11/05/2022 Telephone [facility] D[facility]AL [address] [place] [address] Rashid Hart, DDS 230 [place] [address] case back from lab Social History Tobacco [...] documented as of this encounter Care Teams Cryptographic Clerk Relationship Specialty Start Date End Date Sierra Leon MD [address] [place] [address] PCP - General Family Medicine 10/06/19 03/18/25 Sarah Beth Bonilla CNP [address] [place] [address] PCP - General Family Medicine 03/19/25 documented as of this encounter
--- OUTSIDE RECORDS SUMMARY | 2025-04-19 13:18 | XMS_ITS | Encounter Summary ---
Author Organization [employer] Address [address] [facility] [address] [place] [address] Care Team Providers Care Deadener Name Role Phone Sierra Leon MD Primary Care Provider Sarah Beth Bonilla CNP Primary Care Provider [phone] Reason for Visit * Reason Onset Date Comments Appointment Request 05/24/2023 Encounter Details Date Type Department Care Team ([facility] Contact Info) Description 05/24/2023 Telephone [facility] MED & PEDS 505 [place], [place] [phone] Sierra Leon MD 505 [place], [place] [phone] Appointment Request Social History Tobacco Use Types [...] to message above. Please contact pt at [phone] * Telephone Encounter - Jaswinder Loya - 05/24/2023 11:48 AM EST Tc from pt wanting to schedule an appt with pcp regarding mamogram and a ct scan regarding her arthritis. Pt is also requesting labs. Pt denied any concerns, please contact pt at [phone]. documented in this encounter Plan of Treatment Not on file documented as of this encounter Visit Diagnoses Not on filedocumented in this encounter Additional Health Concerns Assessment Noted Time PHQ-9 Depression Total Score: 2 06/05/19 23 11:20 AM EST documented as of this encounter Care Teams Deadener Relationship Specialty Start Date End Date Sierra Leon MD [address] [place] [address] PCP - General Family Medicine 10/06/19 03/18/25 Sarah Beth Bonilla CNP 505 [place] [address] PCP - General Family Medicine 03/19/25 documented as of this encounter
--- OUTSIDE RECORDS SUMMARY | 2025-04-19 13:18 | XMS_ITS | Encounter Summary ---
Author Organization [employer] Address [address] [facility] [address] 7t [place] [address] Care Team Providers Care User Interface Engineer Name Role Phone Sierra Leon MD Primary Care Provider [phone] Sarah Beth Bonilla CNP Primary Care Provider [phone] Reason for Visit * Reason Onset Date Comments Med Refill 05/12/2024 Encounter Details Date Type Department Care Team ([facility] Contact Info) Description 05/12/2024 Telephone [facility] MED[facility]INE [address] [place] [address] Sierra Leon MD [address] [place], [place] [phone] Med Refill Social History Tobacco Use Types [...] 400 MG capsule To be sent to: [facility] documented in this encounter Plan of Treatment Not on file documented as of this encounter Visit Diagnoses Not on filedocumented in this encounter Additional Health Concerns Assessment Noted Time PHQ-9 Depression Total Score: 8 02/08/20 24 11:48 AM EDT documented as of this encounter Care Teams User Interface Engineer Relationship Specialty Start Date End Date Sierra Leon MD [address] [place] [address] PCP - General Family Medicine 10/06/19 03/18/25 Sarah Beth Bonilla CNP [address] [place] [address] PCP - General Family Medicine 03/19/25 documented as of this encounter
--- OUTSIDE RECORDS SUMMARY | 2025-04-19 13:18 | XMS_ITS | Encounter Summary ---
Author Organization [employer] Address [address] [facility] [address] [place] [address] Care Team Providers Care Manufacturing Baker Name Role Phone Sierra Leon MD Primary Care Provider [phone] Sarah Beth Bonilla CNP Primary Care Provider [phone] Reason for Visit * Reason Onset Date Comments Hospital Follow-up 11/15/2024 Encounter Details Date Type Department Care Team ([facility] Contact Info) Description 11/15/2024 Telephone [facility] MED[facility]INE [address] [place] [address] Sierra Leon MD [address] [place], [place] [phone] Hospital Follow-up Social History Tobacco Use Types Packs/Day Years [...] encounter Miscellaneous Notes * Telephone Encounter - Jaswinder Loya - 11/15/2024 9:22 AM EDT Tc from pt requesting a HDF appt. Hospital: [facility] Date of admission: 11/11/24 Discharge date: 11/14/24 Diagnosed: Lightheadedness documented in this encounter Plan of Treatment Not on file documented as of this encounter Visit Diagnoses Not on filedocumented in this encounter Additional Health Concerns Assessment Noted Time PHQ-9 Depression Total Score: 8 02/08/20 24 11:48 AM EDT documented as of this encounter Care Teams Manufacturing Baker Relationship Specialty Start Date End Date Sierra Leon MD [address] [place] [address] PCP - General Family Medicine 10/06/19 03/18/25 Sarah Beth Bonilla CNP 505 [place] [address] PCP - General Family Medicine 03/19/25 documented as of this encounter
--- OUTSIDE RECORDS SUMMARY | 2025-04-19 13:18 | XMS_ITS | Encounter Summary ---
Author Organization [employer] Address [address] [facility] [address] 7[address] [place] [address] Care Team Providers Care Battery Builder Name Role Phone Sierra Leon MD Primary Care Provider [phone] Sarah Beth Bonilla CNP Primary Care Provider [phone] Reason for Visit * Reason Onset Date Comments Med Refill 09/05/2024 Encounter Details Date Type Department Care Team ([facility] Contact Info) Description 09/05/2024 Telephone [facility] MED[facility]INE [address] [place] [address] Sierra Leon MD [address] [place], [place] [phone] Med Refill Social History Tobacco Use Types [...] Telephone Encounter - Joyce Burdick LPN - 09/05/2024 1:41 PM EDT Medication sent to [facility] today 09/05/24. * Telephone Encounter - Agustin Cagle - 09/05/2024 1:13 PM EDT TC from pt requesting medication refill. Medications needing refill : gabapentin (Neurontin) 400 MG capsule To be sent to: [facility] - [place], [place] - [address] documented in this encounter Plan of Treatment Not on file documented as of this encounter Visit Diagnoses Not on filedocumented in this encounter Additional Health Concerns Assessment Noted Time PHQ-9 Depression Total Score: 8 02/08/20 24 11:48 AM EDT documented as of this encounter Care Teams Battery Builder Relationship Specialty Start Date End Date Sierra Leon MD [address] [place] [address] PCP - General Family Medicine 10/06/19 03/18/25 Sarah Beth Bonilla CNP [address] [place] [address] PCP - General Family Medicine 03/19/25 documented as of this encounter
--- OUTSIDE RECORDS SUMMARY | 2025-04-19 13:18 | XMS_ITS | Encounter Summary ---
Author Organization [employer] Address [address] [facility] [address] 7t [place] [address] Care Team Providers Care Final Cigar And Box Examiner Name Role Phone Sierra Leon MD Primary Care Provider [phone] Sarah Beth Bonilla CNP Primary Care Provider [phone] Reason for Visit * Reason Onset Date Comments Lab Orders 05/28/2023 Encounter Details Date Type Department Care Team ([facility] Contact Info) Description 05/28/2023 Telephone [facility] MEDICINE [address] [place] [address] Sierra Leon MD [address] [place], [place] [phone] Lab Orders Social History Tobacco Use Types [...] documented as of this encounter Care Teams Final Cigar And Box Examiner Relationship Specialty Start Date End Date Sierra Leon MD 230 [place] [address] PCP - General Family Medicine 10/06/19 03/18/25 Sarah Beth Bonilla CNP [address] [place] [address] PCP - General Family Medicine 03/19/25 documented as of this encounter
--- OUTSIDE RECORDS SUMMARY | 2025-04-19 13:18 | XMS_ITS | Encounter Summary ---
Author Organization [employer] Address [address] [facility] [address] 7t [place] [address] Care Team Providers Care Public Policy Associate Name Role Phone Sierra Leon MD Primary Care Provider [phone] Sarah Beth Bonilla CNP Primary Care Provider [phone] Reason for Visit * Reason Onset Date Comments Medication Question 02/13/2025 Encounter Details Date Type Department Care Team ([facility] Contact Info) Description 02/13/[address] [facility] MEDICINE 230 [place] [address] Sierra Leon MD 505 [place], [place] [phone] Medication Question Social History Tobacco Use Types Packs/Day Years [...] your housing situation today? I have peyman ywatt 06/25/[address] you li [...] encounter Miscellaneous Notes * Telephone Encounter - Elisa Roman - 02/13/2025 11:56 AM EDT Tc from pt stating she throw away though the kitchen sink by accident her medication below. [employer] Director spoke with pharmacy and they advised to let know PCP and if PCP is willing to send an earlier refillfor pt. If doctor do agree, PCP has to call the pharmacy to give the ok for an earlier refill. - gabapentin (Neurontin) 400 MG capsule Contact pt at [phone] documented in this encounter Plan of Treatment Not on file documented as of this encounter Visit Diagnoses Not on filedocumented in this encounter Additional Health Concerns Assessment Noted Time PHQ-9 Depression Total Score: 8 02/08/20 24 11:48 AM EDT documented as of this encounter Care Teams Public Policy Associate Relationship Specialty Start Date End Date Sierra Leon MD [address] [place] [address] PCP - General Family Medicine 10/06/19 03/18/25 Sarah Beth Bonilla CNP [address] [place] [address] PCP - General Family Medicine 03/19/25 documented as of this encounter
--- OUTSIDE RECORDS SUMMARY | 2025-04-19 13:18 | XMS_ITS | Clinical Summary ---
Author Organization [facility] Address [address] [place] [address] Phone Care Team Providers Care Edger Liner Name Role Phone Sierra Leon MD Primary Care Provider Medications cyanocobalamin (VITAMIN B-12) 1,000 mcg tablet Take 1 tablet (1,000 mcg total) by mouth 1 (one) time each day. 11/30/2024 Active gabapentin (NEURONTIN) 400 mg capsule Take 1 capsule (400 mg total) by mouth 2 (two) times a day. 12/28/2024 Active rosuvastatin (CRESTOR) 10 mg tablet Take 1 tablet (10 mg total) by mouth 1 (one) time each day. 11/30/2024 Active venlafaxine (EFFEXOR) 25 mg tablet Take 1 tablet (25 mg total) by mouth 1 (one) time each day. with food 02/18/2024 Active Active Problems Problem Noted Date Diagnosed Date Syncope 01/19/2025 Hypotension 01/19/2025 Encounters Date Type Department Care Team Description 01/29/2025 Telephone [facility] [address] [place] [phone] Glen Parker NP from Last 3 Months Surgical History Surgery Date Site/Laterality Comments ABLATION DONE ON 01/11/2025 AT [facility] Medical History Medical History Date Comments Depression with anxiety Hyperlipidemia Macrocytic anemia BECCA (acute kidney injury) (CMS/HCC V24) Light headedness Social History Tobacco Use Types Packs/Day Years Used Date Smoking Tobacco: Never Assessed Comments Unknown Sex and Gender Information Value Date Recorded Sex Assigned at Not on file Legal Sex Female 11:10 AM EDT Gender Identity Not on file Sexual Orientation Not on file Obstetrics History Plan of Treatment Upcoming Encounters Date Type Department Care Team (Late st Contact Info) Description 04/27/2025 9:30 AM EST Ancillary Procedure [facility] [address] [facility] [address] [place] [address] Health Maintenance Due Date Last Done Comments Breast Cancer Screening 1955 Colorectal Cancer Screening: Colonoscopy 1954 DTaP,Tdap,and Td Vaccines (1 - Tdap) 1973 Pneumococcal Vaccine: 50+ Ye ars (1 of 1 - PCV) 2004 Zoster Vaccines (1 of 2) 2004 Depression Screening 05/17/2024 Falls Risk Assessment 11/17/2024 Hepatitis C Screening 11/17/2024 Medicare Annual Wellness Visit 11/17/2024 Osteoporosis Screening (Bone Density Screening) 11/17/2024 Social Influencers of Health Screening 11/17/2024 COVID-19 Vaccine (1 - 2024-2 6 season) 2025 Influenza Vaccine (#1) 2025 RSV Immunization Adult [...] complete this topic Insurance MEDICARE MEDICAID - [place] Care Teams Edger Liner Relationship Specialty Start Date End Date Sierra Leon MD 505 [place] [address] PCP - General Family Medicine 11/21/24
--- OUTSIDE RECORDS SUMMARY | 2025-04-19 13:18 | XMS_ITS | Encounter Summary ---
Author Organization [employer] Address [address] [facility] [address] 7t [place] [address] Care Team Providers Care Carton Filler Name Role Phone Sierra Leon MD Primary Care Provider [phone] Sarah Beth Bonilla CNP Primary Care Provider [phone] Reason for Visit * Reason Onset Date Comments Pre Op 08/31/2023 Encounter Details Date Type Department Care Team ([facility] Contact Info) Description 08/31/2023 Telephone [facility] [address] [place], [place] [phone] Sierra Leon MD [address] [place], [place] [phone] Pre Op Social History Tobacco Use Types [...] [facility] Surgeon's office number: [phone] ext [phone] Surgeon's office fax number: [phone] Contact name (person you spoke with): yennifer Last office note from surgeon requested: yes documented in this encounter Plan of Treatment Not on file documented as of this encounter Visit Diagnoses Not on filedocumented in this encounter Additional Health Concerns Assessment Noted Time PHQ-9 Depression Total Score: 1 07/02/19 10:05 AM EST documented as of this encounter Care Teams Carton Filler Relationship Specialty Start Date End Date Sierra Leon MD [address] [place] [address] PCP - General Family Medicine 10/06/19 03/18/25 Sarah Beth Bonilla CNP [address] [place] [address] PCP - General Family Medicine 03/19/25 documented as of this encounter
--- OUTSIDE RECORDS SUMMARY | 2025-04-19 13:18 | XMS_ITS | Clinical Summary ---
Author Organization [employer] Address [address] [facility] [address] 7[address] [place] [address] Care Team Providers Care Manager Home Name Role Phone Sarah Beth Bonilla NIMO Primary Care Provider [phone] Allergies Active Allergy Reactions Criticality Noted Date Comments Antihistamines, Diphenhydramine-Type Anxiety,Dizziness,Palp itations,Shortness of breath High 06/05/2022 Aspirin Palpitations Low 01/20/2023 Bee Venom 03/26/2025 Ibuprofen 02/08/2024 Nsaids Hives Low 10/06/2019 Penicillin G Palpitations Low 06/05/2022 Other reaction(s): Aspirin Other Reaction(s): Aspirin, Ibuprofen Statins Hives Low 02/26/2021 Medications rosuvastatin (Crestor) 10 MG tabletIndicatio ns:Hypercholest erolemia Take 1 tablet (10 mg) by mouth Once per day. 90 tablet 3 01/10/20 25 Active acetaminophen (Tylenol 8 Hour) 650 MG ER tablet Take 1 tablet (650 mg) by mouth every 8 (eight) hours. 30 tablet 3 5 9:15 AM EST 01/10/20 25 Active Cyanocobalamin (Vitamin B12) 1000 MCG tablet Take 1,000 mcg by mouth. 01/12/20 25 Active cholecalciferol (Vitamin D-3) 25 MCG (1000 UT) tabletIndicatio ns:Encounter for physical examination Take 1 tablet (25 mcg) by mouth Once per day. 60 tablet 11 5 9:57 AM EST 03/27/20 25 Active calcium 200 MG tabletIndicatio ns:Encounter for physical examination Take 1 tablet (200 mg) by mouth Once per day. 30 tablet 11 03/27/20 25 026 Active DULoxetine (Cymbalta) [address] capsuleIndicati ons:Chronic pain syndrome 30 mg once daily for 1 week, then 60 mg once daily for chronic pain. Do not crush or chew. 30 capsule 11 5 9:57 AM EST 03/28/20 25 Active gabapentin (Neurontin) 400 MG capsuleIndicati ons:Depression, unspecified depression type TAKE ONE CAPSULE BY MOUTH FOUR TIMES DAILY 120 capsule 1 5 9:15 AM EST 04/16/20 25 Active cyanocobalamin (Vitamin B-12) 1000 MCG tablet Take 1 tablet (1,000 mcg) by mouth Once per day. 90 tablet 5 9:15 AM EST 04/16/20 25 Active cyanocobalamin (Vitamin B-12) 1000 MCG tablet Take 1 tablet (1,000 mcg) by mouth Once per day. 30 tablet 01/10/20 25 025 Discontinued(Re order (will not trigger notification to Pharmacy)) gabapentin (Neurontin) 400 MG capsuleIndicati ons:Depression, unspecified depression type TAKE ONE CAPSULE BY MOUTH FOUR TIMES DAILY 120 capsule 1 02/15/20 25 025 Discontinued(Re order (will not trigger notification to Pharmacy)) venlafaxine (Effexor) 25 MG tablet Take 25 mg by mouth Once per day. 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 Due to debilitating nature and concern for maintaining QOL we discussed alternative treatments including treatment with opiates. I discussed the risk of using this medication in older adults including dizziness, respiratory depression, and increased risk of falls and therefore do not recommend these medications for first line pain mgmt in older adults. For pain we will trial duloxetine 30mg for 1 week and then 60mg Orders: DULoxetine (Cymbalta) [address] capsule; 30 mg once daily for 1 week, then 60 mg once daily for chronic pain. Do not crush or chew. Hypercholesterolemia 06/05/2022 Depression 04/17/2022 Encounters Date Type Department Care Team Description 04/16/2025 Refill [facility] [address] [place] [address] Sarah Beth Bonilla CNP Depression, unspecified depression type 04/14/2025 Refill [facility] [address] [place] [address] Sierra Leon MD Depression, unspecified depression type 03/27/2025 2:00 PM EST Office Visit [facility] [address] [place] [address] Sarah Beth Bonilla CNP Encounter for physical examination (Primary Dx); Encounter for screening mammogram for breast cancer; Chronic pain syndrome 03/27/2025 Travel 03/26/2025 Telephone [facility] [address] [place] [address] Sarah Beth Bonilla CNP chart prep 03/26/2025 Telephone [facility] [address] [place] [address] Sarah Beth Bonlila CNP Lab Orders 03/20/2025 Travel 03/20/2025 Patient Outreach [facility] [address] [place] [address] Sarah Beth Bonilla CNP Pre-visit Planning ([facility] screening completed on 06/15/24) 02/22/2025 Telephone [facility] [address] [place] [address] Sierra Leon MD Med Refill 02/13/2025 Refill [facility] [address] [place] [address] Sierra Leon MD Depression, unspecified depression type 02/13/2025 Telephone [facility] [address] [place], [place] [phone] Sierra Leon MD Medication Question from Last 3 Months Immunizations Immunization Administration Dates Next Due Influenza High-dose Quadriva lent Preservative Free 03/30/2023,03/27/2022,02/07/2020 Influenza injectable quadriv alent preservative free 04/03/2021 Influenza, High Dose Seasona l, Preservative Free 02/20/2025,02/08/2024 Pfizer Covid-19 Vaccine 12+ 08/23/2020, Pneumococcal Conjugate [...] Sign Reading Time Taken Comments Blood Pressure 100/58 03/27/2025 1:59 PM EST Pulse 76 03/27/2025 1:59 PM EST Temperature 36.2 C (97.1 F) 03/27/2025 1:59 PM EST Respiratory Rate 12 03/27/2025 1:59 PM EST Oxygen Saturation 99% 03/27/2025 1:59 PM EST Inhaled Oxygen Concentration - - Weight 50.3 kg (111 lb) 03/27/2025 1:59 PM EST Height 160.7 cm (5' 3.25 ) 03/27/2025 1:59 PM ES T Body Mass Index 19.51 03/27/2025 1:59 PM EST Plan of Treatment Health Maintenance Due Date Last Done Comments CT Colonography 1954 Colonoscopy 1954 Dental Prophylaxis 1954 Dental X-Ray: Bitewings 1954 Dental X-Ray: Full Mouth 1954 Sigmoidoscopy 1954 Hepatitis C Screening 1972 Mammogram 1994 Zoster Vaccines (1 of 2) 2004 FIT 08/12/2022 08/12/2021 Dental Oral Exam 02/12/2023 08/11/2022 COVID-19 Vaccine ( season) 2025 08/23/2020, 08/02/2020 SDOH Screening 06/15/2025 06/15/2024 Alcohol/Substance Use Screening 07/28/2025 07/28/2024 FOBT 10/27/2025 10/27/2024 Tobacco Screening 12/05/2025 12/05/2024 Depression Screening 03/27/2026 03/27/2025, 03/27/20 25 Colorectal Cancer Screening 10/28/2027 FIT DNA/Cologuard 10/28/2027 10/27/2024 RSV Patients and Patients Aged 60 years or older (1 - 1-dose 75+ series) 2029 Lipid Panel 07/19/2029 07/19/2024, 01/15, 06/21/2023, Additional history exists DTaP/Tdap/Td Vaccines (2 - Td or Tdap) 02/06/2030 02/07/2020 Pneumococcal Vaccine: 50+ Years Completed 07/02/2023 Influenza Vaccine Completed 02/20/2025, , 03/30/2023, Additional history exists HIB Vaccines Aged Out [...] Procedure Name Priority Date/Time Associated Diagnosis Comments LAB COLOGUARD COLON CANCER SCREEN Routine 10/27/2024 5:04 AM EDT Screening for colon cancer LIPID PANEL, STANDARD Routine 07/19/2024 9:41 AM EST Hypercholesterolem ia COMPREHENSIVE ORAL EVALUATION - NEW OR ESTABLISHED PATIENT Routine 08/11/2022 10:15 AM EDT from Last 3 Months or Most Recently Relevant to Health Maintenance Results * Cologuard?? colon cancer screening (10/27/2024 5:04 AM EDT) Cologuard Result Negative Negative 11/10/19 25 12:35 AM EDT [facility] (CLIA #:[id number]) Comment: The Cologuard Plus (TM) test was performed on this specimen. NEGATIVE TEST RESULT. A negative (normal) Cologuard Plus result means the patient has a [id number] chance of having colorectal cancer (CRC) or advanced precancer (polyps or lesions that could become cancer). Negative is the normal value (reference range) for this assay. Guidelines recommend screening again 3 years after a negative Cologuard Plus result. Continued screening increases the chance of finding CRC early or preventing it entirely. A clinical validation study showed the Cologuard Plus test is effective at ruling out CRC. Out of every 10,000 patients testing negative, approximately 2 will be falsely reassured that they do not have CRC, and out of every 100 patients testing negative, approximately 7 patients will be falsely reassured they do not have advanced precancer. TEST DESCRIPTION: The Cologuard Plus test is a multi-target stool DNA (mt-sDNA) test that analyzes DNA and hemoglobin biomarkers in stool. It uses a proprietary algorithm to qualitatively detect CRC and advanced precancer. It is FDA-approved and indicated for use in adults 45 years or older at average risk for CRC. A positive (abnormal) result should be followed by a colonoscopy. Patients with a negative (normal) result should screen again in 3 years. False positive and false negative results may occur. The USPSTF recommends the Cologuard test as a CRC screening option. Their modeling estimates that screening with the test every 3 years from ages 45-85 could prevent up to 73% of CRC and avoid up to 85% of CRC deaths. A 18,911-patient clinical trial found the Cologuard Plus test effectively detects CRC and precancer. The study found the test was 95% sensitive for CRC, 43% sensitive for advanced precancer, and had a 91% specificity (Cologuard Plus Clinician Brochure. [employer]. [place], [place].). Visit [email or web address].com/about/bpfhmcrf-immrdzyioyz-ogutukfqgnc for more test information, references, warnings, and precautions. Stool specimen (specimen) 10/27/2024 5:04 AM EDT 10/31/2024 12:39 PM EDT Sierra Leon MD LAB MOLECULAR DIAGNOSTICS ORDERA BLES Final Result [facility] (CLIA #:[id number]) [address] [place] [address], * Lipid Panel, Standard (07/19/2024 9:41 AM EST) Triglycerides 87 <150 mg/dL [facility] Comment:Desirable Triglyceri de: less than 150 mg/dLBorderline High Triglyceride 150-199 mg/dLHigh Triglyceride: 200-499 mg/dLVery High Triglyceride: greater than or equal to 5OO mg/dL Cholesterol 149 <200 mg/dL [facility] Comment:Desirable Cholestero l: less than 200 mg/dLBorderline High Cholesterol: 200-239 mg/dLHigh Cholesterol: greater than 239 mg/dL LDL Cholesterol Calculated 71 <100 mg/dL [facility] Comment:Desirable LDL: less than 100 mg/dLNear Optimal/Above Optimal LDL: 110- 129 mg/dLBorderline High LDL: 130-159 mg/dLHigh LDL: 160-189 mg/dLVery High LDL: greater than or equal to 190 mg/dL HDL Cholesterol 61 >40 mg/dL [facility] Comment:Desirable HDL: great er than 40 mg/dL Note: This HDL assay may give artificially low results in patients with liver disease. Blood Venous blood specimen / Unknown 07/19/2024 9:41 AM EST 07/19/2024 2:04 PM EST us Sierra Leon MD LAB BLOOD ORDERABLES Final Resul t [facility] [address] [place] [address] [phone] from Last 3 Months or Most Recently Relevant to Health Maintenance Insurance [facility] STANDARD [place] [phone] [facility] MEDICAID STAND ADULT Care Teams Manager Home Relationship Specialty Start Date End Date Sarah Beth Bonilla CNP [address] [place] [id number] PCP - General Family Medicine 03/19/25
[2025-04-19 13:59] LABS: MANUAL DIFF FLAG NO
[2025-04-19 14:04] LABS: Hematocrit 36.1 % (37.0-47.0); Hemoglobin 12.0 g/dl (12.0-16.0); Imm Gran Abs Auto 0.02 X10*3/uL (0.00-0.03); Imm Gran Pct Auto 0.3 % (0.0-0.4); Lymphocytes Absolute Auto 2.9 X10*3/uL (1.2-4.9); Mean Corpuscular HGB Conc 33.2 g/dl (31.0-35.0); Mean Corpuscular Hemoglobin 32.8 pg (27.0-33.0); Mean Corpuscular Volume 98.6 fL (80.0-98.0); NRBC Abs Auto 0.000 X10*3/uL (0.0-0.012); NRBC Pct Auto 0.0 /100WBC (0.0-0.2); Platelet Count 258 X10*3/uL (160-400); Red Blood Count 3.66 X10*6/uL (4.20-5.50); White Blood Count 7.8 X10*3/uL (4.8-10.8)
[2025-04-19 14:35] LABS: Alanine Aminotransferase 14 U/L (0-31); Albumin Level 4.3 g/dL (3.5-5.0); Alkaline Phosphatase 67 U/L (39-117); Anion Gap 12 (12-20); Aspartate Amino Transferase 30 U/L (5-31); Blood Urea Nitrogen 6 mg/dL (9-16); Calcium 9.1 mg/dL (8.4-10.2); Carbon Dioxide 25 mmol/L (22-29); Chloride 104 mmol/L (96-108); Cholesterol 174 mg/dL (<200); Estimated Glomerular Filt Rate > 60; HDL Cholesterol 56 mg/dL (>40); Potassium 3.5 mmol/L (3.3-5.1); Sodium 137 mmol/L (135-145); Total Protein 7.6 g/dL (6.5-8.0); Triglycerides 89 mg/dL (<150)
== END 2025-04-19 10:41 | disposition home or self-care (01) ==
LOC: HO.CHCLDS 10:40
DX: Z00.00 Encounter for general adult medical examination without abnormal findings (principal); Z13.6 Encounter for screening for cardiovascular disorders
CPT/HCPCS: 36415; 80053; 80061; 85025